=== PATIENT | male | born 1970 | race Caucasian/White ===

== ENCOUNTER 2017-08-26 07:30 | Inpatient (IN) | payer OTHER ==
[~2017-08-26] VITALS: Ht 182.9 cm; Wt 99.8 kg
[2017-08-26] VITALS (9 sets, daily range): BP systolic 131–155; BP diastolic 79–96
[2017-08-26] MEDS ORDERED: WELLBUTRIN XL150 MG ORAL (09:04)
[2017-08-26] MEDS ORDERED: NORCO 10-325 T1 EACH ORAL (09:04)
[2017-08-26] MEDS ORDERED: CYCLOBENZAPRINE10 MG ORAL (09:04)
[2017-08-26] MEDS ORDERED: LR 1000ml 1,000 ML IVLG SCH (10:08)
[2017-08-26] MEDS ORDERED: Metoclopramide 10mg/2ml Inj IVP PRN (10:15)
[2017-08-26] MEDS ORDERED: Norco 5mg/325mg tab ORAL PRN (10:15)
[2017-08-26] MEDS ORDERED: Hydromorphone 0.5mg/0.5ml inj IVP PRN ×2 (10:15→13:15)
[2017-08-26] MEDS ORDERED: Midazolam 2mg/2ml Inj IVP PRN (10:15)
[2017-08-26] MEDS ORDERED: Labetalol 5mg/ml 20ml vial IV PRN (10:15)
[2017-08-26] MEDS ORDERED: Atropine Inj 1mg/10ml Syr IV PRN (10:15)
[2017-08-26] MEDS ORDERED: Acetaminophen (Non formulary) 100 ML IV ONE (10:15)
[2017-08-26] MEDS ORDERED: EPINEPHrine 1mg/1ml Amp ONE (10:15)
[2017-08-26] MEDS ORDERED: HYDROcodone/Acetamin 7.5/325 tab ORAL PRN (10:15)
[2017-08-26] MEDS ORDERED: oxyCODONE HCL/Acetaminophen 5/325mg ORAL PRN (10:15)
[2017-08-26] MEDS ORDERED: LORazepam Inj 2mg/ml 1ml IV PRN (10:15)
[2017-08-26] MEDS ORDERED: DiphenhydrAMINE 50mg/ml Inj IVP PRN (10:15)
[2017-08-26] MEDS ORDERED: fentaNYL 100 mcg/2 mL IV PRN (10:15)
--- NOTE | 2017-08-26 10:15 | Anethesia Preoperative Eval ---
Anesthesia Pre-op PMH/ROS General Date of Evaluation: Aug 26, 2017 Time of Evaluation: 10:49 Anesthesiologist: Landen ASA Score: ASA 2 Mallampati Score Class I : Soft palate, uvula, fauces, pillars visible Class II: Soft palate, uvula, fauces visible Class III: Soft palate, base of uvula visible Class IV: Only hard plate visible Mallampati Classification: Class II Surgeon: Nba Diagnosis: Back Pain Surgical Procedure: Left Redo L5-S1 Discectomy and TLIF Anesthesia History: none Family History: no anesthesia problems Allergies: Coded Allergies: IBUPROFEN (Verified Allergy, Severe, Rash; hives, 08/26/17) swelling both feet,body rash,hives,heartburn Medications: see eMAR Past Medical History Cardiovascular: Reports: HTN Gastrointestinal/Genitourinary: Reports: GERD Other: obesity - BMI 33 PSxH Narrative: Lumbar Sx Anesthesia Pre-op Phys. Exam Physician Exam Last Vital Signs Date Time Temp Pulse Resp B/P (MAP) Pulse Ox O2 Delivery O2 Flow Rate FiO2 08/26/17 08:30 97.8 60 16 131/92 98 Room Air 97.8 Constitutional: NAD Neurologic: CN 2-12 intact Cardiovascular: RRR Respiratory: CTA Gastrointestinal: S/NT/ND Airway Exam Mallampati Score: Class II MO: full ROM: full Teeth: intact Anesthesia Pre-op A/P Risk Assessment & Plan Assessment: ASA 2 Plan: GA, BIS, GlideScope Status Change Before Surgery: No Pre-Antibiotics Dru Grams Ancef IV Given Within 1 Hr of Incision: Yes Time Given: 11:31 Shon Schuster MD Aug 26, 2017 10:15
[2017-08-26] MEDS ORDERED: Thrombin 5000 units spray kit TOPIC ONE (10:16)
[2017-08-26] MEDS ORDERED: Thrombin 5000 units TOPIC ONE (10:16)
[2017-08-26] MEDS ORDERED: Lidocaine 1% 10mg/ml/EPI 0.01mg/ml 50ml INJ ONE (10:17)
[2017-08-26] MEDS ORDERED: Bupivacaine 0.5% Inj 30 ml vial INJ ONE (10:17)
[2017-08-26] MEDS ORDERED: Gelfoam Absorbable 1gm powder pkt TOPIC ONE (10:17)
[2017-08-26] MEDS ORDERED: Bupivacaine 0.25% Inj 30ml INJ ONE (10:17)
[2017-08-26] MEDS ORDERED: Bacitracin 50000 Units Vial ONE (10:18)
[2017-08-26] MEDS ORDERED: Zemuron 50mg/5ml Inj IV ONE (10:23)
[2017-08-26] MEDS ORDERED: fentaNYL 100 mcg/2 mL IV ONE ×4 (10:42→16:13)
[2017-08-26] MEDS ORDERED: Dexamethasone 4mg/ml vial ONE (10:43)
[2017-08-26] MEDS ORDERED: Sodium Chloride 10ml vial INJ ONE (10:43)
[2017-08-26] MEDS ORDERED: Lidocaine 1% MPF 10mg/ml 5ml ONE (10:43)
[2017-08-26] MEDS ORDERED: Lidocaine 1% Plain 30 ml INJ ONE ×3 (10:51→14:36)
--- NOTE | 2017-08-26 10:56 | Pre-Procedure Note/Attestation ---
Pre-Procedure Note/Attestation Complete Prior to Procedure Planned Procedure: not applicable Procedure Narrative: L5-S1 TLIF Indications for Procedure Pre-Operative Diagnosis: L5-S1 disc hernia Attestation I attest that I discussed the nature of the procedure; its benefits; risks and complications; and alternatives (and the risks and benefits of such alternatives ), prior to the procedure, with the patient (or the patient's legal pharmacy services representative). I attest that, if there was a reasonable possibility of needing a blood transfusion, the patient (or the patient's legal pharmacy services representative) was given the [facility] standardized written summary, pursuant to the [place] Blood Safety Act ([place] Health and Safety Code # 1645, as amended). I attest that I re-evaluated the patient just prior to the surgery and that there has been no change in the patient's H&P, except as documented below: ADALI JACOBS Aug 26, 2017 10:56
[2017-08-26] MEDS ORDERED: LR 1000ml ONE (11:00)
[2017-08-26] MEDS ORDERED: Neostigmine 1mg/ml 10ml Inj ONE (11:00)
[2017-08-26] MEDS ORDERED: Propofol 1,000mg/ 100ml btl IV ONE (11:00)
[2017-08-26] MEDS ORDERED: Sterile Water Irrig 1000ml IRRIG ONE (11:00)
[2017-08-26] MEDS ORDERED: NS Irrig 1000ml ONE (11:00)
--- NOTE | 2017-08-26 11:26 | Immediate Post-Op Evaluation ---
Immediate Post-Op Evalulation Immediate Post-Op Evalulation Procedure: Left Redo L5-S1 Discectomy and TLIF Date of Evaluation: Aug 26, 2017 Time of Evaluation: 14:15 IV Fluids: 1300 LR Blood Products: 0 Estimated Blood Loss: 150 Urinary Output: 600 Blood Pressure Systolic: 149 Blood Pressure Diastolic: 94 Pulse Rate: 91 Respiratory Rate: 16 O2 Sat by Pulse Oximetry: 99 Temperature (Fahrenheit): 97.9 Pain Score (1-10): 3 Nausea: No Vomiting: No Complications 0 Patient Status: awake, reacts, patent, extubated, none Hydration Status: adequate Dru Grams Ancef IV Given Within 1 Hr of Incision: Yes Time Given: 11:31 Shon Schuster MD Aug 26, 2017 11:26
[2017-08-26] MEDS ORDERED: Glycopyrrolate 0.2mg/ml 1ml Vial ONE ×2 (12:07→14:31)
[2017-08-26] MEDS ORDERED: HYDROcodone/Acetamin 10/325 tab ORAL PRN (13:15)
[2017-08-26] MEDS ORDERED: Chloraseptic Spray 20mL Bottle ORAL PRN (13:15)
[2017-08-26] MEDS ORDERED: Cyclobenzaprine 10mg Tab ORAL PRN (13:15)
[2017-08-26] MEDS ORDERED: Milk of Magnesia 30ml Ud ORAL PRN (13:15)
[2017-08-26] MEDS ORDERED: HYDROmorphone 1mg/ml Carpuject SUBQ PRN (13:30)
--- NOTE | 2017-08-26 17:05 | Brief Operative Note ---
Immediate Post Operative Note Operative Note Chief Complaint: Low Back Pain and radiculopathy Pre-op Diagnosis: L5-S1 disc hernia Procedure: Left L5-S1 TLIF Post-op Diagnosis: same Post-op Diagnosis: same as pre-op Surgeon: Nancy Arango Signwriter: Carroll Nunes Anesthesiologist: Sommer Schuster Anesthesia: general Specimen: yes - disc and synovial cyst Complications: none Condition: stable Fluids: Per Anesthesia rec Estimated Blood Loss: minimal Drains: hemovac Implant(s) used?: Yes - ADALI Quesada Aug 26, 2017 17:05
[2017-08-26] MEDS ORDERED: Docusate 100mg cap ORAL SCH (18:00)
[2017-08-26] MEDS ORDERED: PCA Education Pamphlet MISC ONE (18:30)
[2017-08-26] MEDS ORDERED: Rate Change PCA 1 Each MISC PRN (18:30)
[2017-08-26] MEDS: PCA shift volume MISC SCH (19:00)
[2017-08-26] MEDS ORDERED: Docusate 100mg/10ml Liq ORAL SCH (19:30)
[2017-08-26] MEDS: PCA Morphine 1mg/ml 30 ML IV PRN (19:46)
[2017-08-26] MEDS: ceFAZolin sod 1 GM in D5W 110 ML IV SCH (20:57)
[2017-08-26] MEDS ORDERED: Tamsulosin 0.4mg cap ORAL SCH (21:00)
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
[2017-08-27] VITALS: BP 141/74
[2017-08-27] MEDS: PCA Morphine 1mg/ml 30 ML IV PRN (01:15)
[2017-08-27] MEDS: ceFAZolin sod 1 GM in D5W 110 ML IV SCH ×2 (03:38→11:08)
[2017-08-27 04:00] VITALS: BP 136/82
[2017-08-27] MEDS: PCA shift volume MISC SCH (07:17)
[2017-08-27 08:00] VITALS: BP 145/90
[2017-08-27] MEDS ORDERED: Sennosides 8.6mg ORAL SCH (09:00)
[2017-08-27] MEDS ORDERED: BuPROPion XL 150mg tab ORAL SCH (09:00)
[2017-08-27] MEDS ORDERED: Docusate 100mg/10ml Liq ORAL SCH (09:00)
--- NOTE | 2017-08-27 09:53 | Diagnostic Imaging Report ---
Indication: Intraoperative imaging, pain Technique: Intraoperative images Comparison: none Findings: Intraoperative images document placement of posterior fusion hardware and a disc spacer at L5-S1 Impression: Intraoperative imaging, as described
--- NOTE | 2017-08-27 11:00 | 48 Hour Post Anesthesia Eval ---
Post Anesthesia Evaluation Procedure: Left Redo L5-S1 Discectomy and TLIF Date of Evaluation: Aug 27, 2017 Time of Evaluation: 10:59 Blood Pressure Systolic: 142 0: 58 Pulse Rate: 76 Respiratory Rate: 22 Temperature (Fahrenheit): 97.8 O2 Sat by Pulse Oximetry: 98 Airway: patent Nausea: No Vomiting: No Pain Intensity: 3 Hydration Status: adequate Cardiopulmonary Status: STABLE Mental Status/LOC: patient returned to baseline Follow-up Care/Observations: n/a Post-Anesthesia Complications: none Follow-up care needed: N/A Shahid Mtz MD Aug 27, 2017 11:00
[2017-08-27 12:00] VITALS: BP 141/86
[2017-08-27] MEDS ORDERED: NORCO 10-325 T1 EACH ORAL (14:27)
[2017-08-27] MEDS ORDERED: CYCLOBENZAPRINE10 MG ORAL (14:29)
[2017-08-27] MEDS ORDERED: Tubing IV Secondary IV ONE (14:29)
--- NOTE | 2017-08-27 18:00 | Progress Note ---
DATE: 08/27/2017 ACUTE PAIN MANAGEMENT PHYSICIAN PROGRESS NOTE MEDICATIONS: Medication administration record reviewed. Medication include Flomax, Senokot, Phenergan, Chloraseptic, Protonix, morphine, morphine VAT CLEANER, milk of magnesia, Dilaudid, Callaway, Benadryl, Flexeril, Catapres, Wellbutrin, Mylanta, and Fioricet. LABORATORY STUDIES: No interval laboratory studies. OBJECTIVE: VITAL SIGNS: Temperature afebrile, pulse 62, respirations 20, blood pressure 141/86, and oxygen saturation 97% on room air. I spent over 60 minutes in consultation today. I saw the patient at the bedside with the charge nurse, RNAlesha. I also spoke with the surgeon, Dr. Arango. The Cassidy catheter was removed earlier and the patient has been voiding urine without difficulty. The patient had multiple episodes of nausea. After several antiemetics and the passage of time, his nausea symptoms have improved and he has tolerated regular diet without any nausea symptoms. The patient's pain levels have been well controlled on his morphine VAT CLEANER along with p.r.n. analgesic regimen listed above. I did leave a prescription for Flexeril and Callaway for outpatient usage, quantity 60 tablets for each. The patient will follow up with Dr. Arango in the outpatient clinic in approximately one week. The patient is ambulating well and moving in and out of bed independently. He will be staying with extended family in [facility]. The family will be able to assist with activities of daily living. The patient denies any shortness of breath or chest pain. The patient feels comfortable that he should be able to manage his pain in his home setting. The patient did have surgery last year, so he has experience with the correct rehabilitation and limitations. The patient was turned to the right lateral decubitus position. I did examine the lumbar spine dressing, which showed the incision line clean and dry. I removed the dressing revealing the incision line clean and dry with DuraBond sealant intact. I cut the suture holding in the indwelling lumbar spine drain catheter. Then with end-expiration, with the Hemovac drain taken off of suction, I personally removed the indwelling lumbar spine drain catheter. Alcohol swabbing was applied to the drain hole site. A sterile island border gauze dressings were then applied over the drain hole site and the entire incision area without any complications. I agree with discharge trial home today. Neo Harper M.D. DR: SAEMUS JOB#: [id number] CC:
--- NOTE | 2017-08-27 21:15 | Discharge Summary ---
DATE OF ADMISSION: 08/26/2017 DATE OF DISCHARGE: 08/27/2017 ADMITTING PHYSICIAN AND SURGEON: Julio César Arango M.D. CONSULTING PHYSICIAN: Neo Harper M.D., Pain Management. ADMITTING DIAGNOSIS: L5-S1 disc herniation. POSTOPERATIVE DIAGNOSIS: L5-S1 disc herniation, status post TLIF. HOSPITAL COURSE: The patient was admitted for elective lumbar spine fusion surgery on 08/27/2017. He underwent elective L5-S1 TLIF. After uneventful operating room procedure, the patient was transferred to the recovery room. The patient was stable in recovery room and advanced to the orthopedic floor without incident. Serial monitoring of vital signs and neurologic function was performed for over 24 hours. The patient advanced his ambulation and diet without problems. His pain was well managed. Dr. Harper removed the lumbar drain catheter and the wound was clean and dry, and dressed without incident. The patient was discharged to home with follow-up instructions in [address] Arango's outpatient surgical clinic. Neo Harper M.D. DR: AICHA JOB#: [id number] CC:
== END 2017-08-27 14:30 | disposition home or self-care (01) | DRG 455 ==
LOC: SDSOVERFLO 08:00 → 3E 18:21
PROC: 3E0U0GB Introduction of Recombinant Bone Morphogenetic Protein into Joints, Open Approach (ICD-10-PCS; principal; 2017-08-26 11:00)
PROC: 0SB30ZZ Excision of Lumbosacral Joint, Open Approach (ICD-10-PCS; principal; 2017-08-26 11:00)
PROC: 0ST40ZZ Resection of Lumbosacral Disc, Open Approach (ICD-10-PCS; principal; 2017-08-26 11:00)
PROC: 0SG30AJ Fusion of Lumbosacral Joint with Interbody Fusion Device, Posterior Approach, Anterior Column, Open Approach (ICD-10-PCS; principal; 2017-08-26 11:00)
PROC: 0SG3071 Fusion of Lumbosacral Joint with Autologous Tissue Substitute, Posterior Approach, Posterior Column, Open Approach (ICD-10-PCS; principal; 2017-08-26 11:00)
PROC: 4A11X4G Monitoring of Peripheral Nervous Electrical Activity, Intraoperative, External Approach (ICD-10-PCS; principal; 2017-08-26 11:00)
DX: M51.17 Intervertebral disc disorders with radiculopathy, lumbosacral region (principal); M51.27 Other intervertebral disc displacement, lumbosacral region; V89.2XXS Person injured in unspecified motor-vehicle accident, traffic, sequela; Z98.1 Arthrodesis status; E66.9 Obesity, unspecified; Z87.891 Personal history of nicotine dependence; F32.9 Major depressive disorder, single episode, unspecified; G89.18 Other acute postprocedural pain; Z68.29 Body mass index [BMI] 29.0-29.9, adult; M48.07 Spinal stenosis, lumbosacral region; M71.38 Other bursal cyst, other site
CPT/HCPCS: 36415; 72020; 76001; 86850; 86900; 86901; 87081; 94003; 94150; J2405; J2710